=== PATIENT | male | born 1965 | race Caucasian/White ===

== ENCOUNTER 2022-05-30 07:39 | Emergency (ER) | payer MEDICARE ==
--- NOTE | 2022-05-30 07:42 | ERPHSYRPT ---
- History of Present Illness Time Seen by Provider: 05/30/22 07:42 Historian: patient Exam Limitations: no limitations Physician History: This is a 57-year-old white male patient of Dr. Angel and homemaker companion Dr. Izquierdo who has a history of Crohn's disease, cirrhosis, anxiety and Parkinson's disease and presents with right flank, right lower quadrant abdominal pain and pain into his right testicle that was relatively sudden onset that began this morning at 5 AM. Patient feels nauseated. He has had no diarrhea. In the last couple months patient has been evaluated worked up and treated for Crohn's flareups. He is receiving Entyvio monthly injection and is due next . He he has a colonoscopy scheduled on 06/11/2022. In addition to his abdominal complaints, he has had belching that has been significant in the last several weeks. Today's pain syndrome is different than his typical Crohn's flareup symptoms. Timing/Duration: today Activities at Onset: none Abdominal Pain Onset Location: RUQ, flank (Right) Pain Radiation: RLQ, groin (Right) Severity of Pain-Max: moderate Associated Symptoms: loss of appetite, nausea Previous symptoms: no prior history, different symptoms Allergies/Adverse Reactions: naproxen Allergy (Verified 05/30/22 08:14) DIZZY tramadol Allergy (Verified 05/30/22 08:14) Home Medications: ALPRAZolam 0.5 MG [xanAX 0.5 MG] 1 mg PO TID PRN 10/31/11 [History] Potassium Chloride 10 Meq Tab 10 meq PO UD 10/31/11 [History] Magnesium 1,000 mg PO TID 05/14/12 [History] Super B Complex 1 tab PO DAILY 05/14/12 [History] Vitamin P91-Oqthd Acid Tablet 6,000 iu SL DAILY 05/14/12 [History] Carbidopa/Levodopa/Entacapone [Carbidopa-Levodopa 50 mg-Enta] 1 each PO DAILY 05/30/22 [History] Trazodone HCl 150 mg PO HS 05/30/22 [History] Vedolizumab [Entyvio] 300 mg IV UD 05/30/22 [History] Hx Tetanus, Diphtheria Vaccination/Date Given: No Hx Influenza Vaccination/Date Given: No Hx Pneumococcal Vaccination/Date Given: No Travel Risk - International Travel Have you traveled outside of the country in past 3 weeks: No - Coronavirus Screening Are you exhibiting any of the following symptoms?: No Close contact with a COVID-19 positive Pt in past 14-21 Days: No - Review of Systems Constitutional: No Symptoms Eyes: No Symptoms Ears, Nose, & Throat: No Symptoms Respiratory: No Symptoms Cardiac: No Symptoms Abdominal/Gastrointestinal: Abdominal Pain, Nausea (Right-sided), Appetite Changes Genitourinary Symptoms: No Symptoms Musculoskeletal: No Symptoms Skin: No Symptoms Neurological: No Symptoms Psychological: No Symptoms Endocrine: No Symptoms Hematologic/Lymphatic: No Symptoms Immunological/Allergic: No Symptoms All Other Systems: Reviewed and Negative - Past Medical History Pertinent Past Medical History: Yes Neurological History: Seizures ENT History: No Pertinent History Cardiac History: Myocardial Infarction ([place]) Respiratory History: No Pertinent History Endocrine Medical History: Liver Disease Musculoskeletal History: No Pertinent History GI Medical History: Cirrhosis, Crohns Disease History: No Pertinent History Psycho-Social History: Anxiety, Depression Male Reproductive Disorders: No Pertinent History - Past Surgical History Past Surgical History: Yes Neuro Surgical History: No Pertinent History Cardiac: No Pertinent History Respiratory: No Pertinent History Gastrointestinal: Bowel Surgery, Colon Resection Genitourinary: No Pertinent History Musculoskeletal: No Pertinent History Male Surgical History: No Pertinent History Other Surgical History: bowel resection mar 2007 - Social History Smoking Status: Former smoker How long have you smoked: 25 yrs Exposure to second hand smoke: No Drug Use: none Patient Lives Alone: No - Nursing Vital Signs Nursing Vital Signs: Initial Vital Signs Temperature 97.0 F 05/30/22 07:59 Pulse Rate 68 05/30/22 07:59 Blood Pressure 137/91 05/30/22 07:59 O2 Sat by Pulse Oximetry 99 05/30/22 07:59 Pain Scale Pain Intensity 8 - Physical Exam General Appearance: no apparent distress, alert, anxiety Eye Exam: PERRL/EOMI, eyes nml inspection Ears, Nose, Throat Exam: normal ENT inspection, moist mucous membranes Neck Exam: normal inspection, non-tender, supple, full range of motion Respiratory Exam: normal breath sounds, lungs clear, airway intact, No chest tenderness, No respiratory distress Cardiovascular Exam: regular rate/rhythm, normal heart sounds, normal peripheral pulses Gastrointestinal/Abdomen Exam: soft, normal bowel sounds, tenderness (Right- sided), guarding (Right side to palpation), No rebound Rectal Exam: not done Back Exam: normal inspection, normal range of motion, No CVA tenderness, No vertebral tenderness Extremity Exam: normal inspection, normal range of motion, pelvis stable Neurologic Exam: alert, oriented x 3, cooperative, tow motor driver II-XII nml as tested, normal mood/affect, nml cerebellar function, nml station & gait, sensation nml Skin Exam: normal color, warm, dry Lymphatic Exam: No adenopathy SpO2 Interpretation: normal O2 Delivery: Room Air - Course Nursing assessment & vital signs reviewed: Yes Ordered Tests: Active Orders 24 hr Category Date Time Status IV Insertion STAT Care 05/30/22 08:19 Active ABDOMEN AND PELVIS W/0 CONTRAS [CT] Stat Exams 05/30/22 08:19 Completed AMYLASE Stat Lab 05/30/22 08:30 Completed CBC W DIFF Stat Lab 05/30/22 08:30 Completed CMP Stat Lab 05/30/22 08:30 Completed CULTURE,URINE Stat Lab 05/30/22 09:35 Received LIPASE Stat Lab 05/30/22 08:30 Completed Lactic Acid Stat Lab 05/30/22 08:19 Completed PROTIME WITH INR Stat Lab 05/30/22 08:30 Completed UA W/RFX UR CULTURE Stat Lab 05/30/22 09:35 Completed Medication Summary Discontinued Medications Generic Name Dose Route Start Last Admin Trade Name Dilshadq PRN Reason Stop Dose Admin Hydromorphone HCl 1 mg 05/30/22 08:19 05/30/22 08:33 Hydromorphone 1 Mg/1ml Inj 1 Mg/Ml Syringe IV 05/30/22 08:20 1 mg STAT ONE Administration Hydromorphone HCl Confirm 05/30/22 08:28 Hydromorphone 1 Mg/1ml Inj 1 Mg/Ml Syringe Administered 05/30/22 08:29 Dose 1 mg .ROUTE .STK-MED ONE Hydromorphone HCl 1 mg 05/30/22 09:33 05/30/22 09:36 Hydromorphone 1 Mg/1ml Inj 1 Mg/Ml Syringe IV 05/30/22 09:34 1 mg STAT ONE Administration Hydromorphone HCl Confirm 05/30/22 09:35 Hydromorphone 1 Mg/1ml Inj 1 Mg/Ml Syringe Administered 05/30/22 09:36 Dose 1 mg .ROUTE .STK-MED ONE Sodium Chloride 1,000 mls @ 999 mls/hr 05/30/22 08:19 05/30/22 08:32 Sodium Chloride 0.9% 1000 Ml IV 05/30/22 09:19 999 mls/hr .Q1H1M STA Administration Sodium Chloride Confirm 05/30/22 08:28 Sodium Chloride 0.9% 1000 Ml Administered 05/30/22 08:29 Dose 1,000 mls @ ud .ROUTE .STK-MED ONE Ondansetron HCl 4 mg 05/30/22 08:19 05/30/22 08:32 Ondansetron Hcl 4 Mg/2 Ml Vial IV 05/30/22 08:20 4 mg STAT ONE Administration Ondansetron HCl Confirm 05/30/22 08:28 Ondansetron Hcl 4 Mg/2 Ml Vial Administered 05/30/22 08:29 Dose 4 mg .ROUTE .STK-MED ONE Lab/Rad Data: Laboratory Result Diagrams 05/30/22 08:30 05/30/22 08:30 Laboratory Results 05/30/22 05/30/22 05/30/22 Range/Units 09:35 08:30 08:30 WBC (4.0-10.5) x10^3/uL RBC (4.1-5.6) x10^6/uL Hgb (12.5-18.0) g/dL Hct (42-50) % MCV (78-100) fL MCH (26-32) pg MCHC (32-36) g/dL RDW (11.5-14.0) % Plt Count (150-450) x10^3/uL MPV (7.5-11.0) fL Gran % (36.0-66.0) % Immature Gran % (Auto) (0.00-0.4) % Nucleat RBC Rel Count (0.00-0.1) % Eos # (Auto) (0-0.5) x10^3/uL Immature Gran # (Auto) (0.00-0.03) x10^3u/L Absolute Lymphs (auto) (1.0-4.6) x10^3/uL Absolute Monos (auto) (0.0-1.3) x10^3/uL Absolute Nucleated RBC (0.00-0.01) x10^3u/L Lymphocytes % (24.0-44.0) % Monocytes % (0.0-12.0) % Eosinophils % (0.00-5.0) % Basophils % (0.0-0.4) % Absolute Granulocytes (1.4-6.9) x10^3/uL Basophils # (0-0.4) x10^3/uL PT 10.1 (9.4-12.5) SECONDS INR 0.92 (0.8-3.0) Sodium 141 (137-145) mmol/L Potassium 3.5 (3.5-5.1) mmol/L Chloride 107 (98-107) mmol/L Carbon Dioxide 23 (22-30) mmol/L Anion Gap 15.2 H (5-15) MEQ/L BUN 7 L (9-20) mg/dL Creatinine 1.15 (0.66-1.25) mg/dL Estimated GFR > 60.0 ML/MIN Glucose 121 H (74-106) mg/dL Lactic Acid (0.4-2.0) Calcium 8.9 (8.4-10.2) mg/dL Total Bilirubin 0.80 (0.2-1.3) mg/dL AST 27 (17-59) U/L ALT 18 (0-50) U/L Alkaline Phosphatase 79 (38-126) U/L Serum Total Protein 7.5 (6.3-8.2) g/dL Albumin 4.4 (3.5-5.0) g/dL Amylase 92 (30-110) U/L Lipase 91 (23-300) U/L Urine Color Dark Yellow (Yellow) Urine Appearance Clear (Clear) Urine pH 5.0 (4.6-8.0) Ur Specific Ernest 1.025 (1.005-1.030) Urine Protein Trace A (Negative) Urine Glucose (UA) Negative (Negative) mg/dL Urine Ketones Trace A (Negative) Urine Blood Large A (Negative) Urine Nitrite Negative (Negative) Urine Bilirubin Negative (Negative) Urine Urobilinogen 0.2 (0.2) mg/dL Ur Leukocyte Esterase Negative (Negative) U Hyaline Cast (Auto) NONE SEEN (0-2) /LPF Urine Microscopic RBC 21-50 A (0-5) /HPF Urine Microscopic WBC 0-2 (0-5) /HPF Ur Epithelial Cells None Seen (None Seen) /HPF Urine Bacteria None Seen (None Seen) /HPF Urine Culture Reflexed YES (NO) 05/30/22 05/30/22 Range/Units 08:30 08:19 WBC 7.9 (4.0-10.5) x10^3/uL RBC 4.95 (4.1-5.6) x10^6/uL Hgb 15.2 (12.5-18.0) g/dL Hct 45.2 (42-50) % MCV 91.3 (78-100) fL MCH 30.7 (26-32) pg MCHC 33.6 (32-36) g/dL RDW 14.1 H (11.5-14.0) % Plt Count 198 (150-450) x10^3/uL MPV 11.5 H (7.5-11.0) fL Gran % 75.1 H (36.0-66.0) % Immature Gran % (Auto) 0.5 H (0.00-0.4) % Nucleat RBC Rel Count 0.0 (0.00-0.1) % Eos # (Auto) 0.03 (0-0.5) x10^3/uL Immature Gran # (Auto) 0.04 H (0.00-0.03) x10^3u/L Absolute Lymphs (auto) 1.37 (1.0-4.6) x10^3/uL Absolute Monos (auto) 0.50 (0.0-1.3) x10^3/uL Absolute Nucleated RBC 0.00 (0.00-0.01) x10^3u/L Lymphocytes % 17.3 L (24.0-44.0) % Monocytes % 6.3 (0.0-12.0) % Eosinophils % 0.4 (0.00-5.0) % Basophils % 0.4 (0.0-0.4) % Absolute Granulocytes 5.96 (1.4-6.9) x10^3/uL Basophils # 0.03 (0-0.4) x10^3/uL PT (9.4-12.5) SECONDS INR (0.8-3.0) Sodium (137-145) mmol/L Potassium (3.5-5.1) mmol/L Chloride (98-107) mmol/L Carbon Dioxide (22-30) mmol/L Anion Gap (5-15) MEQ/L BUN (9-20) mg/dL Creatinine (0.66-1.25) mg/dL Estimated GFR ML/MIN Glucose (74-106) mg/dL Lactic Acid 2.0 (0.4-2.0) Calcium (8.4-10.2) mg/dL Total Bilirubin (0.2-1.3) mg/dL AST (17-59) U/L ALT (0-50) U/L Alkaline Phosphatase (38-126) U/L Serum Total Protein (6.3-8.2) g/dL Albumin (3.5-5.0) g/dL Amylase (30-110) U/L Lipase (23-300) U/L Urine Color (Yellow) Urine Appearance (Clear) Urine pH (4.6-8.0) Ur Specific Ernest (1.005-1.030) Urine Protein (Negative) Urine Glucose (UA) (Negative) mg/dL Urine Ketones (Negative) Urine Blood (Negative) Urine Nitrite (Negative) Urine Bilirubin (Negative) Urine Urobilinogen (0.2) mg/dL Ur Leukocyte Esterase (Negative) U Hyaline Cast (Auto) (0-2) /LPF Urine Microscopic RBC (0-5) /HPF Urine Microscopic WBC (0-5) /HPF Ur Epithelial Cells (None Seen) /HPF Urine Bacteria (None Seen) /HPF Urine Culture Reflexed (NO) - Progress Progress: improved, pain not gone completely Progress Note: 05/30/22 10:10 CAT scan of the abdomen pelvis without contrast results were reviewed by me. The impression was dictated by the radiologist and discussed with the patient. There is a new 4 mm distal right ureteral stone approximately 1 cm proximal to the UVJ. There is a new force millimeter choledochal stone. There is also new left femur head changes consistent with avascular necrosis. Again, these issues were discussed in detail with the patient. This patient has multiple medical issues that we have uncovered with our work- up. Therefore I think his level of complexity is high which will require several specialist to review this patient and perform further testing. They include urologic consultation to address his left ureteral stone that is causing obstructive uropathy as described in the CAT scan of the abdomen pelvis including moderate hydronephrosis, renal edema and perinephric stranding. He will also need to have an evaluation by orthopedic surgery to address the left femur finding that may be consistent with avascular necrosis. And finally, the patient needs to be evaluated by a homemaker companion to determine if there is a need to address the new choledochal stone that is found on this CAT scan. The discharge plan is discussed with the patient. More acutely, we will provide the patient with [place] 5/325 prescription, Flomax prescription and arrange an outpatient urologic appointment to address this acute ureterolithiasis issue. The other medical issues discussed above will be arranged by the patient by contacting his primary care provider and referrals to orthopedic surgeon and homemaker companion. Counseled pt/family regarding: lab results, diagnosis, need for follow-up, rad results Medical Desision Making - Independent Historian Additional History obtained from: Spouse - Discussion of managment Reviewed:: Test results, Need for additional workup Agreed on:: Treatment plan, need for follow-up - Diagnostic Testing Diagnostic test were ordered, analyzed, and reviewed by me: Yes Radiological Interpretation: Reviewed by me, Teleradiologist Report - Risk of complications Low Risk: Low risk of morbidity from additional dx testing or treatment - Departure Departure Disposition: Home Clinical Impression: Right ureteral calculus, Obstructive uropathy, Choledocholithiasis, Avascular necrosis of bone of left hip Condition: Stable Critical Care Time: No Referrals: KENIA ANGEL [Primary Care Provider] - Follow up/PCP as directed Additional Instructions: Drink plenty of fluids. Take your medication as prescribed. Follow-up with the urologist that we have made an appointment for you. If your symptoms worsen, proceed to the emergency room of the hospital of the urologist that you have an appointment with. Prescriptions: Hydrocodone/APAP 5/325 [[place] 5/325 mg] 1 each PO Q6H PRN PRN #10 tablet MDD 4 PRN Reason: Pain Tamsulosin HCl 0.4 mg [Flomax 0.4 MG] 0.4 mg PO DAILY #7 cap
[2022-05-30] MEDS ORDERED: Zofran 4 MG/2 ML VIAL IV ONE (08:19)
[2022-05-30] MEDS ORDERED: Sodium Chloride 0.9% 1000 ML 1,000 ML IV STA (08:19)
[2022-05-30] MEDS ORDERED: Hydromorphone 1 mg/ml Injection IV ONE ×2 (08:19→09:33)
[2022-05-30] MEDS ORDERED: Zofran 4 MG/2 ML VIAL ONE (08:28)
[2022-05-30] MEDS ORDERED: Hydromorphone 1 mg/ml Injection ONE ×2 (08:28→09:35)
[2022-05-30] MEDS ORDERED: Sodium Chloride 0.9% 1000 ML 1,000 ML ONE (08:28)
[2022-05-30 08:34] LABS: Absolute Neutrophil Ct (ANC) 5.96 x10^3/uL (1.4-6.9); BASOPHIL % 0.4 % (0.0-0.4); Basophil (Absolute #) 0.03 x10^3/uL (0-0.4); Eosinophil % 0.4 % (0.00-5.0); Eosinophil (Absolute #) 0.03 x10^3/uL (0-0.5); Hematocrit 45.2 % (42-50); Hemoglobin 15.2 g/dL (12.5-18.0); IMMATURE GRAN # 0.04 x10^3u/L (0.00-0.03); IMMATURE GRAN % 0.5 % (0.00-0.4); Lymphocyte (Absolute #) 1.37 x10^3/uL (1.0-4.6); Lymphocytes % 17.3 % (24.0-44.0); Mean Cell Volume 91.3 fL (78-100); Mean Corpuscular Hemoglobin 30.7 pg (26-32); Mean Corpuscular Hgb Concent. 33.6 g/dL (32-36); Mean Platelet Volume 11.5 fL (7.5-11.0); Monocytes % 6.3 % (0.0-12.0); Neutrophil % 75.1 % (36.0-66.0); Platelet Count 198 x10^3/uL (150-450); Red Blood Count 4.95 x10^6/uL (4.1-5.6); Red Cell Distribution Width 14.1 % (11.5-14.0); White Blood Count 7.9 x10^3/uL (4.0-10.5)
[2022-05-30 08:46] LABS: INR 0.92 (0.8-3.0); PROTIME 10.1 SECONDS (9.4-12.5)
[2022-05-30 08:48] LABS: ALBUMIN 4.4 g/dL (3.5-5.0); ALKALINE PHOSPHATASE 79 U/L (38-126); AMYLASE 92 U/L (30-110); ANION GAP 15.2 MEQ/L (5-15); BLOOD UREA NITROGEN 7 mg/dL (9-20); CHLORIDE 107 mmol/L (98-107); Calcium 8.9 mg/dL (8.4-10.2); Carbon Dioxide 23 mmol/L (22-30); Creatinine 1 1.15 mg/dL (0.66-1.25); EST GLOMERULAR FILTRATION RATE > 60.0 ML/MIN; Glucose 121 mg/dL (74-106); LIPASE 91 U/L (23-300); Potassium 3.5 mmol/L (3.5-5.1); SGOT/AST 27 U/L (17-59); SGPT/ALT 18 U/L (0-50); SODIUM 141 mmol/L (137-145); Total Protein 7.5 g/dL (6.3-8.2)
--- NOTE | 2022-05-30 09:22 | XRAY ---
Indication: Right flank/right lower quadrant pain. Nausea. Multiple contiguous axial images obtained through the abdomen and pelvis without contrast using renal stone protocol. Comparison: October 31, 2011 Lung bases demonstrates mild fibrosis/scarring and minimal bilateral dependent atelectasis. Heart not enlarged. New 4 mm distal right ureteral calculus approximately 1 cm proximal to UVJ. Proximal right ureter is slightly prominent up to 7 mm along with moderate hydronephrosis, renal edema, and perirenal stranding consistent with obstructive uropathy. Right lower renal calyx demonstrates 2 new calculi, largest 9 mm. Left upper kidney demonstrates nonobstructing punctate calculus. Noncontrasted stomach and bowel loops appear nonobstructed. There has been interval partial right hemicolectomy. No free fluid/air. New 4 mm choledochal stone without abnormal biliary distention. Remaining liver, gallbladder, pancreas, spleen, adrenal glands, kidneys, ureters, and bladder are unremarkable for noncontrast exam. Worsening scattered moderate aortoiliac calcifications without AAA. Osseous structures intact with minimal degenerative changes throughout the lumbar spine. Mild degenerative changes both hips. Superior left femur head demonstrates small focus of subcortical serpiginous sclerosis as seen with avascular necrosis. Impression: 1. New 4 mm distal right ureteral calculus producing obstructive uropathy as detailed. Additional new bilateral renal calculi. 2. New 4 mm choledochal stone. 3. New left femur head subcortical serpiginous sclerosis as seen with avascular necrosis. 4. Chronic findings including pulmonary fibrosis/scarring, arteriosclerotic disease, and chronic bony findings.
[2022-05-30 09:34] VITALS: O2SAT 98
[2022-05-30 09:44] LABS: Appearance Clear (Clear); Bacteria None Seen /HPF (None Seen); Bilirubin Negative (Negative); Blood Large (Negative); Epithelial Cells None Seen /HPF (None Seen); Glucose, Urine Negative (Negative); Hyaline Casts NONE SEEN /LPF (0-2); Ketones Trace (Negative); Leukocyte Esterase Negative (Negative); Nitrite Negative (Negative); Protein,Urine Dip Trace (Negative); RBC 21-50 /HPF (0-5); Specific Gravity 1.025 (1.005-1.030); Urobilinogen 0.2 mg/dL (0.2); WBC 0-2 /HPF (0-5)
[2022-05-30 09:56] LABS: ADD URINE CULTURE? YES (NO)
[2022-05-30] MEDS ORDERED: Flomax 0.4 MG PO ONE (10:10)
[2022-05-30 10:16] VITALS: BP 139/77; PULSE 82
[2022-05-30] MEDS ORDERED: Flomax 0.4 MG ONE (10:17)
== END 2022-05-30 10:52 | disposition home or self-care (01) ==
LOC: ED 07:39
DX: N13.9 Obstructive and reflux uropathy, unspecified (principal); N20.1 Calculus of ureter; K80.50 Calculus of bile duct without cholangitis or cholecystitis without obstruction; M87.9 Osteonecrosis, unspecified; R10.31 Right lower quadrant pain; R11.0 Nausea; Z79.891 Long term (current) use of opiate analgesic; Z79.899 Other long term (current) drug therapy
CPT/HCPCS: 36000; 36415; 74176; 80053; 81001; 82150; 83605; 83690; 85025; 85610; 87086; 96360; 96374; 96375; 96376; 99284; J1170; J2405; A9270-GY